=== PATIENT | female | born 1955 | race Caucasian/White ===

== ENCOUNTER → 2018-09-14 | Outpatient (CLI) | payer OTHER | LOC: LAB.O 16:16 | PROVIDERS: ATTEND Family Medicine | DX: I82.409 Acute embolism and thrombosis of unspecified deep veins of unspecified lower extremity (principal) ==

== ENCOUNTER → 2018-10-25 | Outpatient (CLI) | payer OTHER | LOC: LAB.O 15:17 | PROVIDERS: ATTEND Family Medicine | DX: I82.409 Acute embolism and thrombosis of unspecified deep veins of unspecified lower extremity (principal) ==

== ENCOUNTER → 2019-02-23 | Outpatient (CLI) | payer OTHER | LOC: LAB.O 13:18 | PROVIDERS: ATTEND Family Medicine | DX: I82.409 Acute embolism and thrombosis of unspecified deep veins of unspecified lower extremity (principal) ==

== ENCOUNTER → 2019-05-18 | Outpatient (CLI) | payer OTHER ==
--- NOTE | 2019-05-19 11:17 | MRI ---
EXAM DESCRIPTION: Lumbar Spine w/o Contrast : Magnetic Resonance Imaging. CLINICAL HISTORY: BACK PAIN COMPARISON: None. TECHNIQUE: Multiplanar, multiple standard sequences, non contrast MRI, lumbar spine. FINDINGS: L5-S1: The disc is well visualized on axial T2 series 501, image 3. Disc desiccation and minimal disc space endplate irregularity S1. Minimal bilateral facet arthrosis and hypertrophy on the left. Anterior endplate ridging and disc bulging to the left of midline. AP canal diameter 10 mm. Mild bilateral foraminal narrowing more on the right. L4-L5: Minimal disc space loss with normal signal in the disc and no bulging. Minimal bilateral facet arthrosis and flavum ligament thickening, right more than left, with trace canal narrowing. Bilateral foramina are patent. L3-L4: Minimal disc desiccation with disc space maintained. Minimal thickening of the posterior ligaments. Canal and foramina are patent. L2-L3: Disc desiccation with no bulging. Minimal bilateral ligament thickening. Canal and foramina are patent. L1-L2: Disc desiccation anterior bulging and endplate ridging. Posterior elements are unremarkable. Canal and foramina are patent. T12-L1: Anterior aspect of the superior L1 endplate is slightly depressed with a endplate defect or Schmorl's node. No marrow edema in the endplate. Minimal disc desiccation with anterior bulging and endplate ridging. Trace posterior disc bulge. Posterior elements unremarkable. Canal and foramina are patent. Conus terminates at this level. No scoliosis. Paravertebral soft tissues muscle atrophy. Skin perspiration hyperintense T2 signal posterior to the spinous processes.. Distal cord normal signal and caliber. Otherwise normal marrow signal in the remaining vertebral bodies and the posterior elements. Vertebral bodies are not compressed at any level. IMPRESSION: 1. No significant disc herniation or bulging at any level. No significant canal stenosis or foraminal stenosis. Borderline central canal stenosis at L5-S1 with no foraminal stenosis. Multiple levels of thickened posterior flavum ligaments with minimal hypertrophic facet arthrosis at few levels. 2. Prior compression type vertebral body fracture of the anterior aspect of the L1 endplate. No marrow edema and no retropulsion. Canal and foramina are patent. Electronically signed by: Rajiv Gonzalez MD 05/19/2019 11:15 AM [facility]
== END ==
LOC: MRI 08:54
PROVIDERS: ATTEND Family Medicine
DX: M54.9 Dorsalgia, unspecified (principal); G89.29 Other chronic pain; I82.409 Acute embolism and thrombosis of unspecified deep veins of unspecified lower extremity

== ENCOUNTER 2019-06-14 18:23 | Emergency (ER) | payer OTHER ==
--- NOTE | 2019-06-14 19:13 | ED.PDOC ---
History of Present Illness - General Chief Complaint: Trauma Stated Complaint: fell over a week ago, out of xanax and muscle rela Time Seen by Provider: 06/14/19 19:10 Source: patient Exam Limitations: no limitations - History of Present Illness Initial Comments: 63 yo F with PMH sig for COPD, CHF, CAD, HTN who presents for L hip pain s/p fall one week ago. Pt is unsure if she hit her head, she is on coumadin, denies LOC. Pt states she tripped and fell landing on that side. The pain radiates into her upper L leg and over to right groin/upper leg. She also reports diffuse lo wer back pain, lower abd pain around her hernia. Because of the pain pt states at times she cannot make it to the restroom in time. Denies f/c, cough, congestion, CP, SOB, n/v/d, edema, urinary sx, MCCRARY, weakness, numbness, saddle anesthesia,. Pt has run out of her xanax and muscle relaxer about 4-5 days ago. Allergies/Adverse Reactions: Allergies Simvastatin [From Zocor] Allergy (Verified 08/12/14 14:33) Acetaminophen [From Hydrocodone W/Acetaminophen] Adverse Reaction (Verified 08/12/14 14:33) Nausea Hydrocodone [From Hydrocodone W/Acetaminophen] Adverse Reaction (Verified 08/12/14 14:33) Nausea Morphine Adverse Reaction (Verified 08/12/14 14:33) Nausea Home Medications: Ambulatory Orders Clonazepam [Klonopin] 1 mg PO PRN PRN 06/21/14 Esomeprazole Magnesium [Nexium] 20 mg PO DAILY 06/21/14 Ezetimibe [Zetia] 10 mg PO DAILY 06/21/14 Ibuprofen [Motrin] 800 mg PO PRN PRN 06/21/14 [place]-3 Fatty Acids [Fish Oil] 1 cap PO DAILY 06/21/14 Sertraline HCl [Zoloft] 150 mg PO DAILY 06/21/14 Warfarin Sodium [Coumadin] 5 mg PO DAILY 06/21/14 Hydrocodone-Acetaminophen [Hydrocodone/Acetaminophen 5-325 mg] 1 tab PO PRN PRN 08/12/14 Promethazine Tab [Phenergan Tablet] 25 mg PO DAILY 08/12/14 Methocarbamol [Robaxin] 500 mg PO BID #8 tab 06/14/19 Review of Systems - Review of Systems Constitutional: Denies: chills, fever EENTM: Denies: blurred vision, double vision, nose congestion, throat pain Respiratory: Denies: cough, orthopnea, short of breath, wheezing Cardiology: Denies: chest pain, edema, palpitations, syncope Gastrointestinal/Abdominal: States: abdominal pain. Denies: diarrhea, nausea, vomiting Genitourinary: Denies: dysuria, frequency, hematuria Musculoskeletal: States: back pain, joint pain. Denies: neck pain Skin: Denies: lesions, rash Neurological: Denies: headache, numbness, weakness Past Medical History (General) - Patient Medical History Hx Seizures: No Hx Stroke: No Hx Dementia: No Hx Asthma: No Hx of COPD: Yes Hx Cardiac Disorders: Yes - hypercholesteremia Hx Congestive Heart Failure: Yes Hx Pacemaker: No Hx Hypertension: Yes Hx Thyroid Disease: No Hx Diabetes: No Hx Gastroesophageal Reflux: Yes Hx Renal Disease: No Hx Cancer: No Hx of HIV: No Hx Hepatitis C: No Hx MRSA: No - Vaccination History Hx Tetanus, Diphtheria Vaccination: No Hx Influenza Vaccination: No Hx Pneumococcal Vaccination: No - Social History Hx Tobacco Use: Yes Hx Chewing Tobacco Use: No Hx Alcohol Use: Yes Hx Substance Use: No Hx Substance Use Treatment: No Hx Depression: No Hx Physical Abuse: No Hx Emotional Abuse: No Hx Suspected Abuse: No - Activities of Daily Living Hospice Agency (if applicable):: None - Female History Patient is a Female of Child Bearing Age (10 -59 yrs old): No Patient : No - Triage Comment ED Triage Comment: pt presents to ED via stretcher from EMS from her home where she resides alone. 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 pt voices that she fell over a week ago and has pain from lower back down left leg. pt voices she is anxious and is out of her muscle relaxer and anti anxiety medication. Family Medical History - Family History Father Living Status: Hx Family Stroke: Yes Hx Cardiac Disease: Yes Hx Family Cancer: Yes Physical Exam - Physical Exam General Appearance: Alert, Comfortable, No apparent distress, Well Developed, Well Nourished Eye Exam: bilateral normal Ears, Nose, Throat: normal pharynx Neck: non-tender, full range of motion, supple, normal inspection Respiratory: chest non-tender, lungs clear, normal breath sounds, no respiratory distress, no accessory muscle use Cardiovascular/Chest: normal peripheral pulses, regular rate, rhythm, no edema, no gallop, no JVD, no murmur Peripheral Pulses: radial,right: 2+, radial,left: 2+ Gastrointestinal/Abdominal: normal bowel sounds, soft, no organomegaly, no pulsatile mass, hernia - periumbilical, reducible, other - no distention, guarding, rebound Rectal Exam: normal exam, normal rectal tone Back Exam: normal inspection, no CVA tenderness, no vertebral tenderness, other - L paraspinal TTP bilaterally Extremity: normal range of motion, normal inspection, no pedal edema, no calf tenderness, normal capillary refill, other - TTP to L hip. Full ROM of all extremities without deformity or swelling. No extremity/joint TTP noted otherwise. Neurovascularly intact. 2+ distal pulses. Cap refill <2 seconds. Neurologic: no motor/sensory deficits, alert, oriented x 3, depressed affect DTR: 4+: Patellar, left, Patellar, right Skin Exam: normal color, warm/dry Lymphatic: no adenopathy Progress - Progress Progress: On multiple rechecks, pt has been sleeping comfortably. I have explained and reviewed all results with the pt. Pt feels improved, comfortable with d/c home. I explained that emergent conditions may arise and to return to the ER for new, worsening, or any persistent conditions. I've explained the importance of f/u for recheck. All questions and concerns addressed at this time. Pt understands and agrees with plan. Pt well appearing, NAD, is stable for discharge. Sisi Gusman MD Emergency Medicine Physician Billing Number [id number] - Results/Orders Results/Orders: 06/14/19 19:10 URINALYSIS Stat 06/14/19 19:12 Hold Metformin x 48Hrs [id number] 06/14/19 19:15 EKG STAT Laboratory Results - last 24 hr 06/14/19 06/14/19 06/14/19 19:30 19:30 19:30 WBC 11.4 H RBC 4.89 Hgb 14.5 Hct 44.2 MCV 90.4 MCH 29.7 MCHC 32.9 L RDW 15.3 H Plt Count 462 H MPV 7.7 Absolute Neuts (auto) 6.90 H Absolute Lymphs (auto) 3.00 Absolute Monos (auto) 1.10 H Absolute Eos (auto) 0.20 Absolute Basos (auto) 0.10 Neutrophils % 60.2 Lymphocytes % 26.6 Monocytes % 9.9 H Eosinophils % 2.0 Basophils % 1.3 Sodium 139 Potassium 3.9 Chloride 102 Carbon Dioxide 27 Anion Gap 13.9 BUN 14 Creatinine 0.73 BUN/Creatinine Ratio 19.2 Random Glucose 119 H Serum Osmolality 279.2 Calcium 9.3 Total Bilirubin 0.3 AST 18 ALT 18 Alkaline Phosphatase 87 Troponin I < 0.02 B-Natriuretic Peptide 35.9 Serum Total Protein 7.7 Albumin 4.0 Globulin 3.7 H Albumin/Globulin Ratio 1.1 Urine Color Urine Appearance Urine pH Ur Specific [place] Urine Protein Urine Glucose (UA) Urine Ketones Urine Blood Urine Nitrite Urine Bilirubin Urine Urobilinogen Ur Leukocyte Esterase Urine RBC Urine WBC Ur Epithelial Cells Urine Bacteria 06/14/19 22:20 WBC RBC Hgb Hct MCV MCH MCHC RDW Plt Count MPV Absolute Neuts (auto) Absolute Lymphs (auto) Absolute Monos (auto) Absolute Eos (auto) Absolute Basos (auto) Neutrophils % Lymphocytes % Monocytes % Eosinophils % Basophils % Sodium Potassium Chloride Carbon Dioxide Anion Gap BUN Creatinine BUN/Creatinine Ratio Random Glucose Serum Osmolality Calcium Total Bilirubin AST ALT Alkaline Phosphatase Troponin I B-Natriuretic Peptide Serum Total Protein Albumin Globulin Albumin/Globulin Ratio Urine Color Yellow Urine Appearance Clear Urine pH 5.5 Ur Specific [place] 1.010 Urine Protein Negative Urine Glucose (UA) Negative Urine Ketones Negative Urine Blood Small H Urine Nitrite Negative Urine Bilirubin Negative Urine Urobilinogen 0.2 Ur Leukocyte Esterase Negative Urine RBC 0-1 Urine WBC 0-1 Ur Epithelial Cells 1-[address] abd/pelvis, L spine: PROCEDURE: CT Abdomen, Pelvis and Lumbar Spine Without Intravenous Contrast CLINICAL INDICATION: The patient is 63 years old and is Female; pain TECHNIQUE: Axial computed tomography images of the abdomen, pelvis and lumbar spine without intravenous contrast. Sagittal and coronal reformatted images were created and reviewed. This CT exam was performed using one or more of the following dose reduction techniques: automated exposure control, adjustment of the mA and/or kV according to patient size, and/or use of iterative reconstruction technique. COMPARISON: None. FINDINGS: LUNG BASES: Bibasilar chronic lung changes in right lung base atelectasis/scarring. No focal consolidation. PLEURAL SPACE: No pleural effusion or pneumothorax. HEART: The heart is normal in size. Coronary calcifications. No pericardial effusion. ABDOMEN: LIVER: Unremarkable. GALLBLADDER AND BILE DUCTS: Prior cholecystectomy. No ductal dilation. PANCREAS: Unremarkable. No ductal dilation. SPLEEN: Unremarkable. No splenomegaly. ADRENALS: Unremarkable. No mass. KIDNEYS AND URETERS: Right renal cysts measuring 5.3 cm. No obstructing stones. No hydronephrosis. STOMACH AND BOWEL: Small bowel containing periumbilical hernia. No obstruction. Distal colonic diverticulosis with mild wall thickening of the sigmoid colon. No peridiverticular stranding. PELVIS: APPENDIX: The appendix is seen and is within normal limits. BLADDER: Unremarkable. No stones. REPRODUCTIVE: Unremarkable as visualized. LUMBAR SPINE: VERTEBRAE: Diffuse osteopenia. Facet arthropathy in the lower lumbar spine. No acute fracture. DISCS/SPINAL CANAL/NEURAL FORAMINA: No acute findings. No spinal canal stenosis. ABDOMEN and PELVIS: INTRAPERITONEAL SPACE: Unremarkable. No free air. No significant fluid collection. BONES/JOINTS: Multilevel degenerative disease. SOFT TISSUES: See above. VASCULATURE: Unremarkable. No abdominal aortic aneurysm. LYMPH NODES: Unremarkable. No enlarged lymph nodes. IMPRESSION: 1. No acute abdominal or pelvic abnormality. No acute lumbar spine abnormality. 2. Small bowel containing periumbilical hernia. No obstruction. 3. Sigmoid colon diverticulosis without acute diverticulitis. 4. Bibasilar chronic lung changes, right greater than left. 5. 5.2 cm right renal cyst. 6. Diffuse osteopenia and lower lumbar facet arthropathy. Electronically signed by: Fernando Langford DO 06/14/2019 9:42 PM DAIRY MANAGER CXR: EXAM DESCRIPTION: Chest,1 View CLINICAL HISTORY:63 years Female, volume overload Comparison: None FINDINGS: No focal lung consolidation. Diffuse prominence of the interstitium. No pleural effusion. No pneumothorax. Cardiomediastinal silhouette is enlarged. Mild vascular congestion. No acute osseous abnormality. IMPRESSION: Cardiomegaly and chronic lung changes versus interstitial edema. Correlate for superimposed infectious process. Electronically signed by: Fernando Langford DO 06/14/2019 9:[address] head: EXAM DESCRIPTION: Head CLINICAL HISTORY: 63 years Female fall, coumadin COMPARISON: None Technique: Contiguous axial images of the brain were obtained without the administration of intravenous contrast.This exam was performed according to our departmental dose-optimization program which includes use of Automated Exposure Control, adjustment of the mA and/or kV according to patient size and/or use of iterative reconstruction technique. FINDINGS: Brain: No acute intracranial hemorrhage. No extra-axial collection. No mass effect or herniation. Prominence of the sulci and cisterns. Confluent periventricular and subcortical white matter hypodensity is noted. Vascular structures: Prominence of the basilar artery. Intracranial vascular calcification. Ventricles: Allowing for underlying cerebral volume loss, ventricular size appears within normal limits.. Globes and orbits: No acute abnormality. Bones: No acute osseous finding Paranasal sinuses: Paranasal sinuses are clear. Mastoid air cells: Well pneumatized. Soft tissues: Within normal limits IMPRESSION: No acute intracranial hemorrhage, hydrocephalus or herniation.. Cerebral volume loss and chronic small vessel ischemic changes. If persistent clinical concern for acute ischemia, consider MRI brain without contrast for further evaluation. Atherosclerotic vascular disease. Electronically signed by: Fernando Langford DO 06/14/2019 9:43 PM DAIRY MANAGER Pelvis XR: EXAM DESCRIPTION: Pelvis CLINICAL HISTORY: 63 years Female, fall, pain COMPARISON: None. FINDINGS: No fracture or dislocation. Diffuse osteopenia. Bilateral hip joint osteoarthritis, right greater than left. Sacroiliac joints are symmetric. Soft tissues are within normal limits. IMPRESSION: No acute osseous abnormality. Electronically signed by: Fernando Langford DO 06/14/2019 9:36 PM DAIRY MANAGER Left hip: EXAM DESCRIPTION: Hip,Left 2 Views CLINICAL HISTORY: 63 years Female, fall, pain COMPARISON: None. FINDINGS: No fracture or dislocation. Mild osteopenia. Joint spaces are preserved. Mild left hip osteoarthritis. Soft tissues are unremarkable. IMPRESSION: No acute osseous abnormality. Electronically signed by: Fernando Langford DO 06/14/2019 9:44 PM DAIRY MANAGER Vital Signs - 24 hr 06/14/19 06/14/19 06/14/19 18:35 19:10 19:23 Temperature 99.2 F 98.7 F Pulse Rate [ 107 H 107 H 88 brachial] Respiratory 18 18 20 Rate Blood Pressure 135/86 138/87 [Left Arm] O2 Sat by Pulse 94 L 92 L Oximetry 06/14/19 06/14/1919 20:00 21:00 22:00 Temperature 98.4 F Pulse Rate [ 80 74 89 brachial] Respiratory 20 18 18 Rate Blood Pressure 128/81 126/85 100/58 [Left Arm] O2 Sat by Pulse 91 L 91 L 95 Oximetry - EKG/XRAY/CT EKG: Sinus, no ST T wave changes Departure - Departure Clinical Impression: Left hip pain, Musculoskeletal pain, Renal cyst, Lumbar facet arthropathy, Periumbilical hernia Fall Qualifiers: Encounter type: initial encounter Qualified Code(s): W19.XXXA - Unspecified fall, initial encounter Osteopenia Qualifiers: Osteopenia location: unspecified Qualified Code(s): M85.80 - Other specified disorders of bone density and structure, unspecified site Time of Disposition: 23:10 Disposition: Discharge to Home or Self Care Health Concerns: condition: stable Departure Forms: ED Discharge - Pt. Copy, Patient Portal Self Enrollment Instructions: DI for Trauma, Muscle and Bone Pain (DC) Prescriptions: Methocarbamol [Robaxin] 500 mg PO BID #8 tab Home Medications: Ambulatory Orders Clonazepam [Klonopin] 1 mg PO PRN PRN 06/21/14 Esomeprazole Magnesium [Nexium] 20 mg PO DAILY 06/21/14 Ezetimibe [Zetia] 10 mg PO DAILY 06/21/14 Ibuprofen [Motrin] 800 mg PO PRN PRN 06/21/14 [place]-3 Fatty Acids [Fish Oil] 1 cap PO DAILY 06/21/14 Sertraline HCl [Zoloft] 150 mg PO DAILY 06/21/14 Warfarin Sodium [Coumadin] 5 mg PO DAILY 06/21/14 Hydrocodone-Acetaminophen [Hydrocodone/Acetaminophen 5-325 mg] 1 tab PO PRN PRN 08/12/14 Promethazine Tab [Phenergan Tablet] 25 mg PO DAILY 08/12/14 Methocarbamol [Robaxin] 500 mg PO BID #8 tab 06/14/19 Additional Instructions: [facility] As needed, if symptoms worsen Your Primary Care Physician Make appointment, two days, for follow up
--- NOTE | 2019-06-14 21:37 | RAD ---
EXAM DESCRIPTION: Pelvis CLINICAL HISTORY: 63 years Female, fall, pain COMPARISON: None. FINDINGS: No fracture or dislocation. Diffuse osteopenia. Bilateral hip joint osteoarthritis, right greater than left. Sacroiliac joints are symmetric. Soft tissues are within normal limits. IMPRESSION: No acute osseous abnormality. Electronically signed by: Fernando Langford DO 06/14/2019 9:36 PM VALVE MAKER
--- NOTE | 2019-06-14 21:43 | CT ---
PROCEDURE: CT Abdomen, Pelvis and Lumbar Spine Without Intravenous Contrast CLINICAL INDICATION: The patient is 63 years old and is Female; pain TECHNIQUE: Axial computed tomography images of the abdomen, pelvis and lumbar spine without intravenous contrast. Sagittal and coronal reformatted images were created and reviewed. This CT exam was performed using one or more of the following dose reduction techniques: automated exposure control, adjustment of the mA and/or kV according to patient size, and/or use of iterative reconstruction technique. COMPARISON: None. FINDINGS: LUNG BASES: Bibasilar chronic lung changes in right lung base atelectasis/scarring. No focal consolidation. PLEURAL SPACE: No pleural effusion or pneumothorax. HEART: The heart is normal in size. Coronary calcifications. No pericardial effusion. ABDOMEN: LIVER: Unremarkable. GALLBLADDER AND BILE DUCTS: Prior cholecystectomy. No ductal dilation. PANCREAS: Unremarkable. No ductal dilation. SPLEEN: Unremarkable. No splenomegaly. ADRENALS: Unremarkable. No mass. KIDNEYS AND URETERS: Right renal cysts measuring 5.3 cm. No obstructing stones. No hydronephrosis. STOMACH AND BOWEL: Small bowel containing periumbilical hernia. No obstruction. Distal colonic diverticulosis with mild wall thickening of the sigmoid colon. No peridiverticular stranding. PELVIS: APPENDIX: The appendix is seen and is within normal limits. BLADDER: Unremarkable. No stones. REPRODUCTIVE: Unremarkable as visualized. LUMBAR SPINE: VERTEBRAE: Diffuse osteopenia. Facet arthropathy in the lower lumbar spine. No acute fracture. DISCS/SPINAL CANAL/NEURAL FORAMINA: No acute findings. No spinal canal stenosis. ABDOMEN and PELVIS: INTRAPERITONEAL SPACE: Unremarkable. No free air. No significant fluid collection. BONES/JOINTS: Multilevel degenerative disease. SOFT TISSUES: See above. VASCULATURE: Unremarkable. No abdominal aortic aneurysm. LYMPH NODES: Unremarkable. No enlarged lymph nodes. IMPRESSION: 1. No acute abdominal or pelvic abnormality. No acute lumbar spine abnormality. 2. Small bowel containing periumbilical hernia. No obstruction. 3. Sigmoid colon diverticulosis without acute diverticulitis. 4. Bibasilar chronic lung changes, right greater than left. 5. 5.2 cm right renal cyst. 6. Diffuse osteopenia and lower lumbar facet arthropathy. Electronically signed by: Fernando Langford DO 06/14/2019 9:42 PM PATENT PROSECUTION ATTORNEY
--- NOTE | 2019-06-14 21:45 | CT ---
EXAM DESCRIPTION: Head CLINICAL HISTORY: 63 years Female fall, coumadin COMPARISON: None Technique: Contiguous axial images of the brain were obtained without the administration of intravenous contrast.This exam was performed according to our departmental dose-optimization program which includes use of Automated Exposure Control, adjustment of the mA and/or kV according to patient size and/or use of iterative reconstruction technique. FINDINGS: Brain: No acute intracranial hemorrhage. No extra-axial collection. No mass effect or herniation. Prominence of the sulci and cisterns. Confluent periventricular and subcortical white matter hypodensity is noted. Vascular structures: Prominence of the basilar artery. Intracranial vascular calcification. Ventricles: Allowing for underlying cerebral volume loss, ventricular size appears within normal limits.. Globes and orbits: No acute abnormality. Bones: No acute osseous finding Paranasal sinuses: Paranasal sinuses are clear. Mastoid air cells: Well pneumatized. Soft tissues: Within normal limits IMPRESSION: No acute intracranial hemorrhage, hydrocephalus or herniation.. Cerebral volume loss and chronic small vessel ischemic changes. If persistent clinical concern for acute ischemia, consider MRI brain without contrast for further evaluation. Atherosclerotic vascular disease. Electronically signed by: Fernando Langford DO 06/14/2019 9:43 PM [facility]
--- NOTE | 2019-06-14 21:46 | RAD ---
EXAM DESCRIPTION: Hip,Left 2 Views CLINICAL HISTORY: 63 years Female, fall, pain COMPARISON: None. FINDINGS: No fracture or dislocation. Mild osteopenia. Joint spaces are preserved. Mild left hip osteoarthritis. Soft tissues are unremarkable. IMPRESSION: No acute osseous abnormality. Electronically signed by: Fernando Langford DO 06/14/2019 9:44 PM [facility]
--- NOTE | 2019-06-14 21:46 | RAD ---
EXAM DESCRIPTION: Chest,1 View CLINICAL HISTORY:63 years Female, volume overload Comparison: None FINDINGS: No focal lung consolidation. Diffuse prominence of the interstitium. No pleural effusion. No pneumothorax. Cardiomediastinal silhouette is enlarged. Mild vascular congestion. No acute osseous abnormality. IMPRESSION: Cardiomegaly and chronic lung changes versus interstitial edema. Correlate for superimposed infectious process. Electronically signed by: Fernando Langford DO 06/14/2019 9:44 PM FRAMING MANAGER
[2019-06-15 00:36] VITALS: BP 118/65; TEMP 97.8; O2SAT 93
== END 2019-06-14 23:45 | disposition home or self-care (01) ==
LOC: ER 18:23
DX: M25.552 Pain in left hip (principal); M85.80 Other specified disorders of bone density and structure, unspecified site; N28.1 Cyst of kidney, acquired; M47.896 Other spondylosis, lumbar region; K42.9 Umbilical hernia without obstruction or gangrene; J44.9 Chronic obstructive pulmonary disease, unspecified; I25.10 Atherosclerotic heart disease of native coronary artery without angina pectoris; I11.0 Hypertensive heart disease with heart failure; E78.00 Pure hypercholesterolemia, unspecified; I50.9 Heart failure, unspecified; K21.9 Gastro-esophageal reflux disease without esophagitis; Z87.891 Personal history of nicotine dependence; Z79.899 Other long term (current) drug therapy; Z88.8 Allergy status to other drugs, medicaments and biological substances; Z88.6 Allergy status to analgesic agent; Z88.5 Allergy status to narcotic agent; Z79.01 Long term (current) use of anticoagulants